=== PATIENT | female | born 1965 | race Caucasian/White ===

== ENCOUNTER → 2016-12-17 | Outpatient (CLI) | payer OTHER ==
--- NOTE | 2016-12-17 15:54 | MA ---
Screening Digital Mammogram With iCAD Analysis Clinical Indications: Routine screening. Technique: Standard cephalocaudal projections were obtained. Digital breast tomosynthesis was perform ed in the MLO projection with reconstruction at 1.0-mm slice thickness and composite MLO views recons tructed. This examination was processed by the iCAD computer-aided detection system. Comparison: Outside mammographic studies from December 2015, November 2014, November 2013 and breast ul trasound studies of December 15, 2015; March 06, 2015; December 14, 2014. Breast density: Type C: Heterogeneously dense. Findings: CAD was reviewed. There has been increase in the size of the nodular opacity in the subareo lar left breast. On previous studies a small solid nodular area was described in the subareolar right breast with no mammographic correlate identified. No spiculated masses, suspicious calcifications or other secondary signs of malignancy are seen. There has been no significant change in the appearance of either breast. Impression: Left breast nodular asymmetry requires further evaluation, as does a previously noted sma ll solid area in the subareolar right breast; further imaging evaluation is required. BI-RADS 0.. Recommendation: Targeted bilateral breast ultrasound. The patient will be contacted to schedule the u ltrasound study. [facility] will send a result letter to the patient. Negative mammography should not preclude additional workup of a clinically suspicious finding. The patient's information is entered into a reminder system with a target due date for her next mammo gram.
== END ==
LOC: FIMAGING 09:28
DX: Z12.31 Encounter for screening mammogram for malignant neoplasm of breast (principal)
CPT/HCPCS: G0202

== ENCOUNTER → 2016-12-19 | Outpatient (CLI) | payer OTHER ==
--- NOTE | 2016-12-19 09:49 | US ---
Bilateral Breast Ultrasound History: Increasing density behind the left nipple, follow-up nodule behind the right nipple Technique: Ultrasound exam with a high frequency linear transducer. Findings: Left breast: The enlarging density behind the left nipple is consistent with a large simple cyst measuring 3.8 x 4 x 1.9 cm. No further workup is required as long as the cyst is not painful. I f this is becomes painful or infected, it could be aspirated under ultrasound guidance. Right breast: The small nodule directly behind the right nipple currently measures 6 x 5 x 4 mm tyler red to December 15, 2015 at which time it measured 5 x 4 x 3 mm and March 06, 2015 at which time it me asured 5 x 4 x 3 mm. Is no internal vascularity. Impression: 1. Slight increase in size of what is likely a right breast small papilloma. Recommend s urgical consultation to consider excisional biopsy. 2. Enlarging simple cyst left breast. Right breast: BI-RADS 4. Suspicious. Left breast: BI-RADS 2. Benign. Results and recommendation were discussed with the patient. Results discussed with Kimber York at 9 :40 AM.
== END ==
LOC: FIMAGING 09:07
PROVIDERS: ATTEND Family Medicine
DX: N63 Unspecified lump in breast (principal); N60.02 Solitary cyst of left breast

== ENCOUNTER → 2017-01-31 | Day surgery (SDC) | payer OTHER | END | disposition home or self-care (01) | LOC: FSGY 08:03 | PROVIDERS: ATTEND Surgery | PROC: BH40ZZZ Ultrasonography of Right Breast (ICD-10-PCS; principal; 2017-01-31) | DX: N63 Unspecified lump in breast (principal) ==